=== PATIENT | male | born 1960 | race Caucasian/White ===

== ENCOUNTER → 2017-01-30 | Outpatient (CLI) | payer OTHER ==
--- NOTE | 2017-01-30 17:00 | KCIC ---
MR of the left shoulder Indication: Left shoulder pain for months. Repetitive lifting in recent years. Technique: Standard multiplanar sequences are obtained. Findings: Acromioclavicular joint: Mildly degenerative. Small undersurface osteophytes. Rotator cuff: Diffuse thickening and increased signal compatible with tendinosis. There is a deep bursal surface tear of the anterior supraspinatus tendon footprint, measures about 1 cm AP diameter by 70 percent deep. No complete through and through full-thickness rupture or retraction. Trace subdeltoid bursal fluid. Tiny linear cyst or fluid accumulation dissects medially into the infraspinatus musculotendinous junction. No evidence of a subscapularis tendon tear. Glenohumeral cartilage: No acute defect or advanced DJD. Fluid: No significant joint effusion. Labrum: No evidence of labral tear or para labral cyst. Biceps tendon: Intact Bones: No lesion or acute fracture. There is a small hypointense nodular structure adjacent to the posterior superior glenoid, measures 4 mm, may represent a small soft tissue calcification. Impression:Analyzed rotator cuff tendinosis, with a small deep bursal surface tear of the anterior supraspinatus tendon. Electronically signed by: Portillo Demarco MD (01/30/2017 4:57 PM) [facility]
== END | disposition home or self-care (01) ==
LOC: KCIC MRI 15:13
PROVIDERS: ATTEND Nurse Practitioner Family
DX: S43.492A Other sprain of left shoulder joint, initial encounter (principal); M25.712 Osteophyte, left shoulder; X58.XXXA Exposure to other specified factors, initial encounter; Y93.89 Activity, other specified; Y92.89 Other specified places as the place of occurrence of the external cause; Y99.8 Other external cause status
CPT/HCPCS: 73221